=== PATIENT | female | born 1940 | race African-American/Black ===

== ENCOUNTER 2017-12-11 08:47 | Emergency (ER) | payer OTHER ==
[~2017-12-11] VITALS: Ht 157.5 cm; Wt 74.8 kg
[~2017-12-11 08:47] MED LIST: LOSARTAN POTASS25 MG; NABUMETONE500 MG PO; PERCOCET 5/3251 TAB PO; PNEU16DI2; ZOCOR20 MG
[2017-12-11] MEDS ORDERED: ASPIR 8181 MG PO (09:04)
[2017-12-11] MEDS ORDERED: CLONAZEPAM0.5 M1 PO (09:05)
[2017-12-11] MEDS ORDERED: COZAAR50 MG PO (09:05)
== END 2017-12-11 10:16 | disposition home or self-care (01) ==
LOC: ER 08:47
DX: M54.2 Cervicalgia (principal); M62.830 Muscle spasm of back

== ENCOUNTER 2018-05-14 09:58 | Outpatient (CLI) | payer OTHER | END 2018-05-14 10:02 | disposition home or self-care (01) | LOC: MAMO-SONO 09:58 | DX: Z12.31 Encounter for screening mammogram for malignant neoplasm of breast (principal); Z87.898 Personal history of other specified conditions; N64.89 Other specified disorders of breast ==

== ENCOUNTER → 2018-05-14 | Outpatient (CLI) | payer OTHER ==
[~2018-05-14] MED LIST changes: +ASPIR 8181 MG PO; +CLONAZEPAM0.5 M1 PO; +COZAAR50 MG PO
== END | disposition home or self-care (01) ==
LOC: NUCLEAR 11:00
DX: M81.0 Age-related osteoporosis without current pathological fracture (principal)

== ENCOUNTER → 2018-10-19 11:20 | Outpatient (CLI) | payer OTHER | END | disposition home or self-care (01) | LOC: LAB 11:20 | DX: K64.1 Second degree hemorrhoids (principal); K62.5 Hemorrhage of anus and rectum; K62.89 Other specified diseases of anus and rectum; I10 Essential (primary) hypertension ==

== ENCOUNTER 2018-11-08 08:51 | Day surgery (SDC) | payer OTHER ==
[~2018-11-08 08:51] MED LIST changes: +ADVIL100 MG PO
== END 2018-11-08 13:30 | disposition home or self-care (01) ==
LOC: AMB-ENDOS 08:51
DX: D12.2 Benign neoplasm of ascending colon (principal); K64.8 Other hemorrhoids

== ENCOUNTER 2018-11-12 06:26 | Day surgery (SDC) | payer OTHER ==
[2018-11-12] MEDS ORDERED: COLACE100 MG PO (11:34)
[2018-11-12] MEDS ORDERED: PERCOCET 5-3251 EACH PO (11:34)
== END 2018-11-12 17:45 | disposition home or self-care (01) ==
LOC: CIR.AMB 06:26
DX: K64.8 Other hemorrhoids (principal); K62.89 Other specified diseases of anus and rectum

== ENCOUNTER 2019-04-11 11:12 | Outpatient (CLI) | payer OTHER ==
[~2019-04-11 11:12] MED LIST changes: +COLACE100 MG PO; +PERCOCET 5-3251 EACH PO
== END 2019-04-11 11:19 | disposition home or self-care (01) ==
LOC: RAD 11:12
DX: M25.561 Pain in right knee (principal); M25.562 Pain in left knee

== ENCOUNTER 2020-01-18 08:00 | Outpatient (CLI) | payer OTHER | END 2020-01-18 08:19 | disposition HB | LOC: MAMO-SONO 08:00 | PROVIDERS: ATTEND Orthopaedic Surgery | DX: M79.642 Pain in left hand (principal); M25.511 Pain in right shoulder; M25.512 Pain in left shoulder ==

== ENCOUNTER 2020-12-19 09:52 | Outpatient (CLI) | payer OTHER | END 2020-12-19 10:11 | disposition home or self-care (01) | LOC: MAMO-SONO 09:52 | PROVIDERS: ATTEND Internal Medicine Cardiovascular Disease | DX: M25.561 Pain in right knee (principal); M25.562 Pain in left knee; N63.11 Unspecified lump in the right breast, upper outer quadrant; Z12.31 Encounter for screening mammogram for malignant neoplasm of breast ==

== ENCOUNTER 2020-12-28 12:10 | Outpatient (CLI) | payer OTHER | END 2020-12-28 12:17 | disposition home or self-care (01) | LOC: RAD 12:10 | PROVIDERS: ATTEND Orthopaedic Surgery | DX: M25.562 Pain in left knee (principal); Z96.652 Presence of left artificial knee joint ==

== ENCOUNTER 2021-01-04 10:18 | Outpatient (CLI) | payer OTHER | END 2021-01-04 10:19 | disposition home or self-care (01) | LOC: NUCLEAR 10:18 | PROVIDERS: ATTEND Orthopaedic Surgery | DX: M81.0 Age-related osteoporosis without current pathological fracture (principal) ==

== ENCOUNTER → 2022-01-07 | Outpatient (CLI) | payer OTHER | END | disposition home or self-care (01) | LOC: RAD 10:30 | PROVIDERS: ATTEND Orthopaedic Surgery | DX: Z96.652 Presence of left artificial knee joint (principal) ==

== ENCOUNTER 2022-10-07 11:09 | Outpatient (CLI) | payer OTHER | END 2022-10-07 11:14 | disposition home or self-care (01) | LOC: MAMO-SONO 11:09 | PROVIDERS: ATTEND Internal Medicine Cardiovascular Disease | DX: Z12.31 Encounter for screening mammogram for malignant neoplasm of breast (principal); N60.12 Diffuse cystic mastopathy of left breast ==

== ENCOUNTER → 2022-11-12 | Outpatient (CLI) | payer OTHER | END | disposition home or self-care (01) | LOC: RAD 10:05 | PROVIDERS: ATTEND Orthopaedic Surgery | DX: M25.511 Pain in right shoulder (principal) ==

== ENCOUNTER 2023-10-21 11:30 | Outpatient (CLI) | payer OTHER | END 2023-10-21 11:36 | disposition home or self-care (01) | LOC: MAMO-SONO 11:30 | PROVIDERS: ATTEND Internal Medicine Cardiovascular Disease | DX: N60.11 Diffuse cystic mastopathy of right breast (principal); N60.12 Diffuse cystic mastopathy of left breast; Z12.31 Encounter for screening mammogram for malignant neoplasm of breast ==

== ENCOUNTER 2024-05-05 10:50 | Outpatient (CLI) | payer OTHER | END 2024-05-05 11:02 | disposition home or self-care (01) | LOC: RAD 10:50 | PROVIDERS: ATTEND Physical Medicine & Rehabilitation | DX: M54.50 Low back pain, unspecified (principal); M76.62 Achilles tendinitis, left leg ==

== ENCOUNTER 2024-05-25 12:10 | Outpatient (CLI) | payer OTHER | END 2024-05-25 12:15 | disposition home or self-care (01) | LOC: RAD 12:10 | PROVIDERS: ATTEND Internal Medicine Pulmonary Disease | DX: R05.3 Chronic cough (principal) ==

== ENCOUNTER 2024-12-08 11:08 | Outpatient (CLI) | payer OTHER | END 2024-12-08 11:19 | disposition home or self-care (01) | LOC: TOM 11:08 | DX: R51.9 Headache, unspecified (principal) ==

== ENCOUNTER 2025-02-01 10:57 | Outpatient (CLI) | payer OTHER | END 2025-02-01 10:59 | disposition home or self-care (01) | LOC: SONOGRAMA 10:57 | PROVIDERS: ATTEND Orthopaedic Surgery | DX: M54.50 Low back pain, unspecified (principal); M75.121 Complete rotator cuff tear or rupture of right shoulder, not specified as traumatic; M25.512 Pain in left shoulder ==

== ENCOUNTER 2025-02-20 10:21 | Outpatient (CLI) | payer OTHER | END 2025-02-20 10:28 | disposition home or self-care (01) | LOC: MRI 10:21 | PROVIDERS: ATTEND Orthopaedic Surgery | DX: M75.121 Complete rotator cuff tear or rupture of right shoulder, not specified as traumatic (principal) | CPT/HCPCS: 73222; Q9965 ==